=== PATIENT | male | born 1965 | race Two or more races ===

== ENCOUNTER 2023-07-30 05:51 | Inpatient (IN) | payer MEDICAID ==
[~2023-07-30] VITALS: Ht 157.5 cm; Wt 63.5 kg
[2023-07-30] MEDS: VANCOMYCIN 1 GM in IV D5W 250 ML IV ONE (06:30)
[2023-07-30] MEDS ORDERED: PIPERACI/TAZO 3.375GM/D5W 50ML PB IV ONE (06:51)
[2023-07-30] MEDS ORDERED: AZITHROMYCIN 500 MG VIAL ONE (06:51)
[2023-07-30] MEDS ORDERED: ACETAMINOPHEN ES 500 MG TABLET ONE (06:52)
[2023-07-30] MEDS: ACETAMINOPHEN ES 500 MG TABLET PO ONE (06:53)
[2023-07-30] MEDS: PIPERACILLIN /TAZOBACTAM 3.375 G in IV D5W 50 ML IV ONE (06:53)
[2023-07-30] MEDS: AZITHROMYCIN 500 MG in IV D5W 250 ML IV ONE (06:54)
[2023-07-30 07:04] LABS: HEMOGLOBIN 11.1 g/dL (13.5-17.5)
[2023-07-30 07:11] LABS: BASOPHILS % (AUTO) 0.3 % (0.0-2.0); EOSINOPHILS # (AUTO) 0.2 K/uL (0.0-0.7); EOSINOPHILS % (AUTO) 1.2 % (0.0-6.0); HEMATOCRIT 34 % (39-51); LYMPHOCYTES # (AUTO) 0.2 K/uL (0.8-4.8); LYMPHOCYTES % (AUTO) 1.5 % (20.0-44.0); MEAN CORPUSCULAR HEMOGLOBIN 32 PG (26.0-33.0); MEAN CORPUSCULAR HGB CONC 32 g/dl (31.0-36.0); MEAN CORPUSCULAR VOLUME 98 fL (80-96); MONOCYTES # (AUTO) 0.1 K/uL (0.1-1.30); MONOCYTES % (AUTO) 0.3 % (2.0-12.0); NEUTROPHILS # (AUTO) 14.1 K/uL (1.8-8.9); NEUTROPHILS % (AUTO) 96.7 % (43.0-81.0); PLATELET COUNT (AUTO) 468 K/uL (150-450); WHITE BLOOD COUNT (AUTO) 14.6 K/uL (4.3-11.0)
[2023-07-30 07:14] LABS: INR 1.1 (0.91-1.10); PARTIAL THROMBOPLASTIN TIME 27.5 SEC (24.3-34.3); PROTHROMBIN TIME 11.6 SECS (9.2-11.1)
[2023-07-30] MEDS ORDERED: VANCOMYCIN 1 GM /D5W 250 ML PB IV ONE (07:16)
[2023-07-30 07:25] LABS: ALANINE AMINOTRANSFERASE 26 U/L (12-78); ALBUMIN 2.5 g/dL (3.4-5.0); ALKALINE PHOSPHATASE 403 U/L (46-116); ASPARTATE AMINOTRANSFERASE 31 U/L (15-37); BILIRUBIN,DIRECT 0.7 mg/dL (0.0-0.2); BILIRUBIN,TOTAL 2.3 mg/dL (0.2-1.0); CALCIUM, SERUM 8.9 mg/dL (8.5-10.1); CARBON DIOXIDE 24 mmol/L (21-32); CHLORIDE 99 mmol/L (98-107); CREATININE 5.4 mg/dL (0.6-1.3); GLUCOSE 122 mg/dL (74-106); SODIUM SERUM 136 mmol/L (136-145); TOTAL PROTEIN, SERUM 8.7 g/dL (6.4-8.2); UREA NITROGEN, BLOOD 46 mg/dL (7-18)
[2023-07-30] MEDS ORDERED: LACT20SO4 PO (08:48)
[2023-07-30] MEDS ORDERED: POLY17PO4 PO (08:48)
[2023-07-30] MEDS ORDERED: SODI45SP10 BNOSTRILS (08:48)
[2023-07-30] MEDS ORDERED: GLUC1KIT IM (08:48)
[2023-07-30] MEDS ORDERED: MIRT7.5T10 PO (08:48)
[2023-07-30] MEDS ORDERED: ACET-868 PO (08:48)
[2023-07-30] MEDS ORDERED: SEVE800T8 PO (08:48)
[2023-07-30] MEDS ORDERED: TAMS-12 PO (08:48)
[2023-07-30] MEDS ORDERED: MAGN400O6 PO (08:48)
[2023-07-30] MEDS ORDERED: METO25TA6 PO (08:48)
[2023-07-30] MEDS ORDERED: DOCU100T2 PO (08:48)
[2023-07-30] MEDS ORDERED: AMIN30LI2 PO (08:48)
[2023-07-30] MEDS ORDERED: FOLI0.8T43 PO (08:48)
[2023-07-30] MEDS ORDERED: NAPR375T5 PO (08:48)
[2023-07-30] MEDS ORDERED: AMLO5TAB4 PO (08:48)
[2023-07-30] MEDS ORDERED: INSU100I47 SQ (08:48)
[2023-07-30] MEDS ORDERED: OMEP40CA21 PO (08:48)
[2023-07-30] MEDS ORDERED: HYDR-4077 PO (08:48)
[2023-07-30] MEDS ORDERED: IPRA3AMP22 IH (08:48)
[2023-07-30] MEDS ORDERED: Z GUARD REMEDY 4 OZ OINT TP PRN (13:30)
[2023-07-30] MEDS ORDERED: ONDANSETRON HCL/PF 4 MG/2 ML VIAL IVP PRN (13:30)
[2023-07-30] MEDS ORDERED: ACETAMINOPHEN 325 MG TABLET ONE (13:35)
[2023-07-30] MEDS: ACETAMINOPHEN 325 MG TABLET PO PRN (13:37)
[2023-07-30] MEDS: CEFEPIME 1 GM in IV D5W 50 ML IV SCH (15:56)
[2023-07-30 23:35] VITALS: BP 102/57; TEMP 98.8; O2SAT 98
[2023-07-31] VITALS: BP 94/60; TEMP 98.5; O2SAT 98
[2023-07-31 04:00] VITALS: BP 90/58; TEMP 98.2; O2SAT 100
[2023-07-31 07:00] VITALS: BP 100/65; TEMP 97.7; O2SAT 100
[2023-07-31 07:16] LABS: BASOPHILS # (AUTO) 0.1 K/uL (0.0-0.2); BASOPHILS % (AUTO) 0.3 % (0.0-2.0); EOSINOPHILS # (AUTO) 0.5 K/uL (0.0-0.7); EOSINOPHILS % (AUTO) 2.3 % (0.0-6.0); HEMATOCRIT 30 % (39-51); HEMOGLOBIN 9.7 g/dL (13.5-17.5); LYMPHOCYTES # (AUTO) 1.1 K/uL (0.8-4.8); LYMPHOCYTES % (AUTO) 4.8 % (20.0-44.0); MEAN CORPUSCULAR HEMOGLOBIN 32 PG (26.0-33.0); MEAN CORPUSCULAR HGB CONC 33 g/dl (31.0-36.0); MEAN CORPUSCULAR VOLUME 98 fL (80-96); MONOCYTES # (AUTO) 2.1 K/uL (0.1-1.30); MONOCYTES % (AUTO) 8.9 % (2.0-12.0); NEUTROPHILS # (AUTO) 19.5 K/uL (1.8-8.9); NEUTROPHILS % (AUTO) 83.7 % (43.0-81.0); PLATELET COUNT (AUTO) 418 K/uL (150-450); RED BLOOD CELL COUNT(AUTO) 3.01 MIL/uL (4.5-6.0); RED CELL DISTRIBUTION WIDTH 17.8 % (11.5-15.0); WHITE BLOOD COUNT (AUTO) 23.3 K/uL (4.3-11.0)
[2023-07-31 07:27] LABS: CALCIUM, SERUM 8.5 mg/dL (8.5-10.1); CREATININE 6.8 mg/dL (0.6-1.3); MAGNESIUM 2.4 mg/dL (1.8-2.4); PHOSPHORUS 4.5 mg/dL (2.5-4.9); POTASSIUM 4.8 mmol/L (3.5-5.1)
[2023-07-31] MEDS: PANTOPRAZOLE 40 MG TABLET.DR PO SCH (07:54)
[2023-07-31 09:17] LABS: BAND % (MANUAL) 3 % (0.0-5.0); EOSINOPHILS % (MANUAL) 3 % (0-4); LYMPHOCYTES % (MANUAL) 3 % (16-48); MONOCYTES % (MANUAL) 9 % (0-11.0); NEUTROPHILS % (MANUAL) 82 (42-76); PLATELET ESTIMATE ADEQUATE
[2023-07-31 09:18] LABS: ANISOCYTOSIS 1+; OVALOCYTES 1+; TARGET CELLS 1+
[2023-07-31 16:00] VITALS: BP 151/74; TEMP 99.9; O2SAT 95
[2023-07-31] MEDS: VANCOMYCIN POST DIALYSIS 500MG IV PRN (16:45)
[2023-07-31 20:00] VITALS: BP 121/63; TEMP 99; O2SAT 96
[2023-08-01] VITALS: BP 119/60; TEMP 98; O2SAT 98
[2023-08-01 04:07] VITALS: BP 120/70; TEMP 98; O2SAT 100
[2023-08-01 07:56] LABS: BASOPHILS % (AUTO) 0.3 % (0.0-2.0); EOSINOPHILS # (AUTO) 0.6 K/uL (0.0-0.7); EOSINOPHILS % (AUTO) 3.3 % (0.0-6.0); HEMATOCRIT 31 % (39-51); HEMOGLOBIN 9.9 g/dL (13.5-17.5); MEAN CORPUSCULAR HEMOGLOBIN 31 PG (26.0-33.0); MEAN CORPUSCULAR HGB CONC 32 g/dl (31.0-36.0); MEAN CORPUSCULAR VOLUME 97 fL (80-96); MONOCYTES # (AUTO) 2.5 K/uL (0.1-1.30); MONOCYTES % (AUTO) 15.3 % (2.0-12.0); NEUTROPHILS # (AUTO) 12.4 K/uL (1.8-8.9); NEUTROPHILS % (AUTO) 75.1 % (43.0-81.0); PLATELET COUNT (AUTO) 429 K/uL (150-450); RED BLOOD CELL COUNT(AUTO) 3.17 MIL/uL (4.5-6.0); RED CELL DISTRIBUTION WIDTH 17.8 % (11.5-15.0); WHITE BLOOD COUNT (AUTO) 16.5 K/uL (4.3-11.0)
[2023-08-01 08:00] VITALS: BP 130/71; TEMP 98.4; O2SAT 97
[2023-08-01 08:28] LABS: ALBUMIN 1.9 g/dL (3.4-5.0); CALCIUM, SERUM 8.2 mg/dL (8.5-10.1); MAGNESIUM 2.3 mg/dL (1.8-2.4); PHOSPHORUS 3.7 mg/dL (2.5-4.9); TOTAL PROTEIN, SERUM 7.3 g/dL (6.4-8.2)
[2023-08-01 12:00] VITALS: BP 152/80; TEMP 98.4; O2SAT 94
[2023-08-01 13:28] LABS: ANISOCYTOSIS 1+; EOSINOPHILS % (MANUAL) 4 % (0-4); LYMPHOCYTES % (MANUAL) 7 % (16-48); MONOCYTES % (MANUAL) 15 % (0-11.0); NEUTROPHILS % (MANUAL) 74 (42-76); OVALOCYTES 1+; PLATELET ESTIMATE ADEQUATE; TARGET CELLS 1+
[2023-08-01] MEDS ORDERED: NEPRO VAN 237 ML CAN PO PRN (13:30)
[2023-08-01 16:00] VITALS: BP 160/82; TEMP 98.4; O2SAT 94
[2023-08-01] MEDS: LIDOCAINE 1% INJ 50 ML MDV IJ ONE (17:46)
[2023-08-01] MEDS: HYDROCODONE/APAP 5/325MG TABLET PO PRN (18:32)
[2023-08-01 20:00] VITALS: BP 152/85; TEMP 98.8; O2SAT 92
[2023-08-01] MEDS: MEROPENEM 500MG/NS 50 ML PB IV ONE (22:50)
[2023-08-01] MEDS: MEROPENEM 500 MG in IV NS 0.9% 50 ML IV SCH (22:54)
[2023-08-02] VITALS: BP 133/71; TEMP 99.5; O2SAT 93
[2023-08-02 02:39] VITALS: O2SAT 96
[2023-08-02 04:00] VITALS: BP 131/43; TEMP 98.2; O2SAT 95
[2023-08-02 07:28] LABS: BASOPHILS # (AUTO) 0.1 K/uL (0.0-0.2); BASOPHILS % (AUTO) 0.5 % (0.0-2.0); EOSINOPHILS # (AUTO) 0.7 K/uL (0.0-0.7); EOSINOPHILS % (AUTO) 5.7 % (0.0-6.0); HEMATOCRIT 34 % (39-51); HEMOGLOBIN 10.9 g/dL (13.5-17.5); LYMPHOCYTES # (AUTO) 1.2 K/uL (0.8-4.8); LYMPHOCYTES % (AUTO) 9.8 % (20.0-44.0); MEAN CORPUSCULAR HEMOGLOBIN 31 PG (26.0-33.0); MEAN CORPUSCULAR HGB CONC 32 g/dl (31.0-36.0); MEAN CORPUSCULAR VOLUME 98 fL (80-96); MONOCYTES # (AUTO) 2.7 K/uL (0.1-1.30); MONOCYTES % (AUTO) 21.5 % (2.0-12.0); NEUTROPHILS # (AUTO) 7.9 K/uL (1.8-8.9); NEUTROPHILS % (AUTO) 62.5 % (43.0-81.0); PLATELET COUNT (AUTO) 405 K/uL (150-450); RED CELL DISTRIBUTION WIDTH 17.7 % (11.5-15.0); WHITE BLOOD COUNT (AUTO) 12.7 K/uL (4.3-11.0)
[2023-08-02 08:07] LABS: HEPATITIS B SURFACE AB Non Reactive (.)
[2023-08-02 08:12] LABS: ALBUMIN 1.9 g/dL (3.4-5.0); BILIRUBIN,TOTAL 0.8 mg/dL (0.2-1.0); CALCIUM, SERUM 8.5 mg/dL (8.5-10.1); CREATININE 4.5 mg/dL (0.6-1.3); MAGNESIUM 2.4 mg/dL (1.8-2.4); PHOSPHORUS 2.6 mg/dL (2.5-4.9); POTASSIUM 3.8 mmol/L (3.5-5.1); TOTAL PROTEIN, SERUM 7.5 g/dL (6.4-8.2)
[2023-08-02 17:08] LABS: ANISOCYTOSIS 1+; EOSINOPHILS % (MANUAL) 5 % (0-4); LYMPHOCYTES % (MANUAL) 7 % (16-48); MONOCYTES % (MANUAL) 21 % (0-11.0); NEUTROPHILS % (MANUAL) 67 (42-76); PLATELET ESTIMATE ADEQUATE
[2023-08-02 17:09] LABS: HYPOCHROMASIA 1+
[2023-08-02] MEDS: IV 1/2NS 1000 ML 1,000 ML IV PRN (17:37)
[2023-08-02 20:00] VITALS: BP_SYST 152; BP_SYST 153; BP_DIAS 87; BP_DIAS 88; TEMP 98.4; TEMP 98.9; O2SAT 94
[2023-08-03] VITALS: BP_SYST 152; BP_SYST 153; BP_DIAS 88; TEMP 98.4; TEMP 98.9; O2SAT 94
[2023-08-03 02:11] VITALS: O2SAT 95
[2023-08-03 04:00] VITALS: BP 150/83; TEMP 98.3; O2SAT 95
[2023-08-03 07:00] VITALS: BP 162/90; TEMP 98.2; O2SAT 90
[2023-08-03 07:27] LABS: BASOPHILS # (AUTO) 0.1 K/uL (0.0-0.2); BASOPHILS % (AUTO) 0.4 % (0.0-2.0); EOSINOPHILS % (AUTO) 7.6 % (0.0-6.0); HEMATOCRIT 34 % (39-51); HEMOGLOBIN 11.1 g/dL (13.5-17.5); LYMPHOCYTES # (AUTO) 1.3 K/uL (0.8-4.8); LYMPHOCYTES % (AUTO) 9.8 % (20.0-44.0); MEAN CORPUSCULAR HEMOGLOBIN 32 PG (26.0-33.0); MEAN CORPUSCULAR HGB CONC 33 g/dl (31.0-36.0); MEAN CORPUSCULAR VOLUME 97 fL (80-96); MONOCYTES # (AUTO) 2.1 K/uL (0.1-1.30); NEUTROPHILS # (AUTO) 8.8 K/uL (1.8-8.9); NEUTROPHILS % (AUTO) 66.2 % (43.0-81.0); PLATELET COUNT (AUTO) 423 K/uL (150-450); RED BLOOD CELL COUNT(AUTO) 3.51 MIL/uL (4.5-6.0); RED CELL DISTRIBUTION WIDTH 17.3 % (11.5-15.0); WHITE BLOOD COUNT (AUTO) 13.3 K/uL (4.3-11.0)
[2023-08-03 08:40] LABS: CALCIUM, SERUM 7.9 mg/dL (8.5-10.1); MAGNESIUM 2.2 mg/dL (1.8-2.4); PHOSPHORUS 3.1 mg/dL (2.5-4.9)
[2023-08-03 11:35] LABS: ANISOCYTOSIS 1+; EOSINOPHILS % (MANUAL) 2 % (0-4); LYMPHOCYTES % (MANUAL) 9 % (16-48); MONOCYTES % (MANUAL) 12 % (0-11.0); NEUTROPHILS % (MANUAL) 77 (42-76); PLATELET ESTIMATE ADEQUATE
[2023-08-03 11:36] LABS: OVALOCYTES 1+; TARGET CELLS 1+
[2023-08-03 16:00] VITALS: BP 164/91; TEMP 98.2; O2SAT 92
[2023-08-03 20:00] VITALS: BP 157/85; TEMP 98.1; O2SAT 95
[2023-08-04 07:37] LABS: BASOPHILS # (AUTO) 0.1 K/uL (0.0-0.2); BASOPHILS % (AUTO) 0.7 % (0.0-2.0); EOSINOPHILS # (AUTO) 1.1 K/uL (0.0-0.7); EOSINOPHILS % (AUTO) 7.9 % (0.0-6.0); HEMATOCRIT 35 % (39-51); HEMOGLOBIN 11.1 g/dL (13.5-17.5); LYMPHOCYTES # (AUTO) 1.2 K/uL (0.8-4.8); LYMPHOCYTES % (AUTO) 8.7 % (20.0-44.0); MEAN CORPUSCULAR HEMOGLOBIN 31 PG (26.0-33.0); MEAN CORPUSCULAR HGB CONC 32 g/dl (31.0-36.0); MEAN CORPUSCULAR VOLUME 97 fL (80-96); MONOCYTES # (AUTO) 2.1 K/uL (0.1-1.30); MONOCYTES % (AUTO) 15.3 % (2.0-12.0); NEUTROPHILS # (AUTO) 9.4 K/uL (1.8-8.9); NEUTROPHILS % (AUTO) 67.4 % (43.0-81.0); PLATELET COUNT (AUTO) 499 K/uL (150-450); RED BLOOD CELL COUNT(AUTO) 3.55 MIL/uL (4.5-6.0); RED CELL DISTRIBUTION WIDTH 17.5 % (11.5-15.0); WHITE BLOOD COUNT (AUTO) 13.9 K/uL (4.3-11.0)
[2023-08-04 08:12] LABS: CALCIUM, SERUM 7.7 mg/dL (8.5-10.1); CREATININE 6.8 mg/dL (0.6-1.3); MAGNESIUM 2.5 mg/dL (1.8-2.4); PHOSPHORUS 3.5 mg/dL (2.5-4.9); POTASSIUM 4.2 mmol/L (3.5-5.1)
[2023-08-04 08:14] VITALS: BP 168/88; TEMP 98.4; O2SAT 94
[2023-08-04] MEDS ORDERED: FENTANYL PF 100MCG/2ML AMPUL ONE (08:26)
[2023-08-04] MEDS ORDERED: FAMOTIDINE/PF INJ 20 MG/2 ML VIAL IV ONE (08:26)
[2023-08-04] MEDS ORDERED: IOHEXOL 50 ML IV ONE (08:35)
[2023-08-04] MEDS ORDERED: LIDOCAINE HCL/MPF 1% 30 ML VIAL IJ ONE (08:35)
[2023-08-04] MEDS ORDERED: ANESTHESIA TRAY IN PYXIS 1 EA TRAY MC ONE (08:35)
[2023-08-04] MEDS ORDERED: HEPARIN SODIUM, PORCINE 1,000 UNIT/ML VIAL ONE (08:36)
[2023-08-04] MEDS ORDERED: PROPOFOL 100 ML ONE (09:06)
[2023-08-04] MEDS ORDERED: MIDAZOLAM HCL 2 MG/2ML VIAL ONE (09:07)
[2023-08-04 10:18] LABS: BAND % (MANUAL) 3 % (0.0-5.0); EOSINOPHILS % (MANUAL) 10 % (0-4); LYMPHOCYTES % (MANUAL) 6 % (16-48); MONOCYTES % (MANUAL) 11 % (0-11.0); MYELOCYTES % 1 % (0-0); NEUTROPHILS % (MANUAL) 69 (42-76); PLATELET ESTIMATE INCREASED
[2023-08-04 16:02] VITALS: BP 168/95; TEMP 97.7; O2SAT 96
[2023-08-04] MEDS ORDERED: ANCEF 1 GM/50 ML D5W IV SCH ×2 (17:00)
[2023-08-04 22:01] VITALS: BP 178/98; TEMP 98.2; O2SAT 96
[2023-08-04] MEDS ORDERED: POLYETHYLENE GLYCOL 3350 17 GM POWD.PACK PO PRN (22:30)
[2023-08-04] MEDS ORDERED: DOCUSATE SODIUM 100 MG CAPSULE PO PRN (22:30)
[2023-08-04] MEDS ORDERED: LACTULOSE 10 G/15 ML UDC (PYXIS) PO PRN (22:30)
[2023-08-04] MEDS: TAMSULOSIN 0.4 MG CAP.SR.24H PO SCH (22:41)
[2023-08-04] MEDS: AMLODIPINE BESYLATE 5 MG TABLET PO SCH (22:49)
[2023-08-04] MEDS: METOPROLOL TARTRATE 25 MG TABLET PO SCH (22:49)
[2023-08-04 23:30] VITALS: BP 159/88
[2023-08-05] MEDS: hydrALAZINE HCL 50 MG TABLET PO PRN (05:20)
[2023-08-05 06:10] VITALS: BP 160/86
[2023-08-05 07:36] LABS: BASOPHILS # (AUTO) 0.1 K/uL (0.0-0.2); BASOPHILS % (AUTO) 0.5 % (0.0-2.0); EOSINOPHILS % (AUTO) 7.6 % (0.0-6.0); HEMATOCRIT 33 % (39-51); HEMOGLOBIN 10.8 g/dL (13.5-17.5); LYMPHOCYTES # (AUTO) 1.1 K/uL (0.8-4.8); MEAN CORPUSCULAR HEMOGLOBIN 31 PG (26.0-33.0); MEAN CORPUSCULAR HGB CONC 33 g/dl (31.0-36.0); MEAN CORPUSCULAR VOLUME 96 fL (80-96); MONOCYTES # (AUTO) 1.9 K/uL (0.1-1.30); MONOCYTES % (AUTO) 13.9 % (2.0-12.0); NEUTROPHILS # (AUTO) 9.6 K/uL (1.8-8.9); PLATELET COUNT (AUTO) 462 K/uL (150-450); RED BLOOD CELL COUNT(AUTO) 3.44 MIL/uL (4.5-6.0); RED CELL DISTRIBUTION WIDTH 16.9 % (11.5-15.0); WHITE BLOOD COUNT (AUTO) 13.7 K/uL (4.3-11.0)
[2023-08-05] MEDS: SEVELAMER CARBONATE 800 MG POWD.PACK PO SCH (07:36)
[2023-08-05] MEDS: VIT B CMPLX 3/FA/VIT C/BIOTIN 1 TAB TABLET PO SCH (08:08)
[2023-08-05] MEDS: LEVOFLOXACIN (250MG) 250 MG TABLET PO SCH (08:08)
[2023-08-05] MEDS: PROSOURCE / PROSTAT (PYXIS) 30 ML UDC PO SCH (08:08)
[2023-08-05 08:18] VITALS: BP 151/84; TEMP 98.6; O2SAT 98
[2023-08-05 08:22] LABS: CALCIUM, SERUM 8.1 mg/dL (8.5-10.1); CREATININE 6.1 mg/dL (0.6-1.3); MAGNESIUM 2.3 mg/dL (1.8-2.4); PHOSPHORUS 4.1 mg/dL (2.5-4.9); POTASSIUM 4.2 mmol/L (3.5-5.1)
[2023-08-05] MEDS: NAPROXEN 375 MG TABLET.DR PO SCH (09:00)
[2023-08-05 11:53] LABS: EOSINOPHILS % (MANUAL) 4 % (0-4); LYMPHOCYTES % (MANUAL) 14 % (16-48); MONOCYTES % (MANUAL) 11 % (0-11.0); NEUTROPHILS % (MANUAL) 71 (42-76)
[2023-08-05 11:54] LABS: ANISOCYTOSIS 1+; OVALOCYTES 1+; PLATELET ESTIMATE ADEQUATE
[2023-08-05 11:55] LABS: TARGET CELLS 1+
[2023-08-05] MEDS ORDERED: DEXTROSE 50%-WATER 50 ML DISP.SYRIN IV PRN (14:00)
[2023-08-05 16:02] VITALS: BP 156/81; TEMP 99.3; O2SAT 94
[2023-08-05] MEDS: BLOOD SUGAR DIAGNOSTIC 1 EACH STRIP IN SCH (17:10)
[2023-08-05 20:00] VITALS: BP 154/87; TEMP 98.4; O2SAT 94
[2023-08-05] MEDS: MIRTAZAPINE 15 MG TABLET PO SCH (22:04)
[2023-08-06 07:49] LABS: BASOPHILS # (AUTO) 0.1 K/uL (0.0-0.2); BASOPHILS % (AUTO) 0.3 % (0.0-2.0); EOSINOPHILS # (AUTO) 1.7 K/uL (0.0-0.7); EOSINOPHILS % (AUTO) 10.5 % (0.0-6.0); HEMATOCRIT 32 % (39-51); HEMOGLOBIN 10.3 g/dL (13.5-17.5); LYMPHOCYTES # (AUTO) 1.7 K/uL (0.8-4.8); LYMPHOCYTES % (AUTO) 10.5 % (20.0-44.0); MEAN CORPUSCULAR HEMOGLOBIN 31 PG (26.0-33.0); MEAN CORPUSCULAR HGB CONC 32 g/dl (31.0-36.0); MEAN CORPUSCULAR VOLUME 97 fL (80-96); MONOCYTES # (AUTO) 1.9 K/uL (0.1-1.30); MONOCYTES % (AUTO) 11.8 % (2.0-12.0); NEUTROPHILS # (AUTO) 10.9 K/uL (1.8-8.9); NEUTROPHILS % (AUTO) 66.9 % (43.0-81.0); PLATELET COUNT (AUTO) 468 K/uL (150-450); RED BLOOD CELL COUNT(AUTO) 3.31 MIL/uL (4.5-6.0); RED CELL DISTRIBUTION WIDTH 16.6 % (11.5-15.0); WHITE BLOOD COUNT (AUTO) 16.3 K/uL (4.3-11.0)
[2023-08-06 08:00] VITALS: BP 157/86; TEMP 98.6; O2SAT 94
[2023-08-06] MEDS: SEVELAMER CARBONATE 800 MG TABLET PO SCH (08:25)
[2023-08-06 08:33] LABS: CALCIUM, SERUM 7.8 mg/dL (8.5-10.1); CREATININE 7.1 mg/dL (0.6-1.3); MAGNESIUM 2.5 mg/dL (1.8-2.4); POTASSIUM 4.3 mmol/L (3.5-5.1)
[2023-08-06 11:16] LABS: EOSINOPHILS % (MANUAL) 11 % (0-4); LYMPHOCYTES % (MANUAL) 8 % (16-48); METAMYELOCYTES % 1 % (0-0); MONOCYTES % (MANUAL) 10 % (0-11.0); NEUTROPHILS % (MANUAL) 68 (42-76); PLATELET ESTIMATE INCREASED; REACTIVE LYMPHOCYTES 2 % (0-0); SMUDGE CELLS 1+
[2023-08-06 11:17] LABS: ANISOCYTOSIS 1+; OVALOCYTES 1+; TARGET CELLS 1+
[2023-08-06] MEDS: EPOETIN ALFA (10,000 UNIT) 10,000 UNIT/ML VIAL IV ONE (15:06)
[2023-08-06 16:00] VITALS: BP 154/87; TEMP 98.6; O2SAT 94
[2023-08-06] MEDS: GENTAMICIN IV ONE (22:42)
[2023-08-06] MEDS: NS 0.9% IV ONE (22:42)
[2023-08-06] MEDS ORDERED: GENTAMICIN 80 MG/2 ML VIAL ONE (23:38)
[2023-08-07 07:38] LABS: BASOPHILS % (AUTO) 0.4 % (0.0-2.0); HEMATOCRIT 34 % (39-51); HEMOGLOBIN 10.7 g/dL (13.5-17.5); LYMPHOCYTES % (AUTO) 11.9 % (20.0-44.0); MEAN CORPUSCULAR HEMOGLOBIN 31 PG (26.0-33.0); MEAN CORPUSCULAR HGB CONC 32 g/dl (31.0-36.0); MEAN CORPUSCULAR VOLUME 98 fL (80-96); MONOCYTES % (AUTO) 11.9 % (2.0-12.0); NEUTROPHILS % (AUTO) 63.8 % (43.0-81.0); PLATELET COUNT (AUTO) 470 K/uL (150-450); RED BLOOD CELL COUNT(AUTO) 3.43 MIL/uL (4.5-6.0); RED CELL DISTRIBUTION WIDTH 16.5 % (11.5-15.0); WHITE BLOOD COUNT (AUTO) 14.1 K/uL (4.3-11.0)
[2023-08-07 07:39] LABS: BASOPHILS # (AUTO) 0.1 K/uL (0.0-0.2); EOSINOPHILS # (AUTO) 1.7 K/uL (0.0-0.7); LYMPHOCYTES # (AUTO) 1.7 K/uL (0.8-4.8); MONOCYTES # (AUTO) 1.7 K/uL (0.1-1.30)
[2023-08-07 07:58] LABS: CALCIUM, SERUM 8.7 mg/dL (8.5-10.1); CREATININE 6.1 mg/dL (0.6-1.3); MAGNESIUM 2.4 mg/dL (1.8-2.4); PHOSPHORUS 3.7 mg/dL (2.5-4.9); POTASSIUM 4.4 mmol/L (3.5-5.1)
[2023-08-07 08:50] VITALS: BP 161/88; TEMP 98.1; O2SAT 95
[2023-08-07 09:38] LABS: BAND % (MANUAL) 2 % (0.0-5.0); EOSINOPHILS % (MANUAL) 8 % (0-4); LYMPHOCYTES % (MANUAL) 10 % (16-48); METAMYELOCYTES % 1 % (0-0); MONOCYTES % (MANUAL) 13 % (0-11.0); MYELOCYTES % 2 % (0-0); NEUTROPHILS % (MANUAL) 64 (42-76); PLATELET ESTIMATE INCREASED
[2023-08-07 16:09] VITALS: BP 153/86; TEMP 98.1; O2SAT 94
[2023-08-07 20:00] VITALS: BP 147/88; TEMP 97.9; O2SAT 95
[2023-08-07 20:25] VITALS: BP 147/88; TEMP 97.9; O2SAT 95
[2023-08-07] MEDS: INSULIN REGULAR, HUMAN 100 UNIT/ML 3 ML VIAL SQ PRN (22:34)
[2023-08-08 03:01] VITALS: O2SAT 98
[2023-08-08 07:59] LABS: CALCIUM, SERUM 7.4 mg/dL (8.5-10.1); CREATININE 6.8 mg/dL (0.6-1.3); MAGNESIUM 2.4 mg/dL (1.8-2.4); PHOSPHORUS 4.1 mg/dL (2.5-4.9); POTASSIUM 4.9 mmol/L (3.5-5.1)
[2023-08-08 08:09] LABS: BASOPHILS # (AUTO) 0.1 K/uL (0.0-0.2); BASOPHILS % (AUTO) 0.9 % (0.0-2.0); EOSINOPHILS # (AUTO) 1.5 K/uL (0.0-0.7); EOSINOPHILS % (AUTO) 11.3 % (0.0-6.0); HEMATOCRIT 34 % (39-51); HEMOGLOBIN 10.9 g/dL (13.5-17.5); LYMPHOCYTES # (AUTO) 1.6 K/uL (0.8-4.8); LYMPHOCYTES % (AUTO) 11.8 % (20.0-44.0); MEAN CORPUSCULAR HEMOGLOBIN 31 PG (26.0-33.0); MEAN CORPUSCULAR HGB CONC 32 g/dl (31.0-36.0); MEAN CORPUSCULAR VOLUME 97 fL (80-96); MONOCYTES # (AUTO) 1.6 K/uL (0.1-1.30); MONOCYTES % (AUTO) 12.2 % (2.0-12.0); NEUTROPHILS # (AUTO) 8.6 K/uL (1.8-8.9); NEUTROPHILS % (AUTO) 63.8 % (43.0-81.0); PLATELET COUNT (AUTO) 528 K/uL (150-450); RED BLOOD CELL COUNT(AUTO) 3.53 MIL/uL (4.5-6.0); RED CELL DISTRIBUTION WIDTH 16.4 % (11.5-15.0); WHITE BLOOD COUNT (AUTO) 13.5 K/uL (4.3-11.0)
[2023-08-08 08:28] LABS: GENTAMICIN,TROUGH 2.2 ug/ml (0.2-2.0)
[2023-08-08 08:34] VITALS: BP 151/86; TEMP 98.2; O2SAT 95
[2023-08-08] MEDS: GENTAMICIN 80 MG in IV D5W 50 ML IV PRN (15:13)
[2023-08-08] MEDS ORDERED: RXGEN XX (15:21)
[2023-08-08 16:00] VITALS: BP 176/89; TEMP 97.5; O2SAT 95
[2023-08-08 17:16] VITALS: BP 169/94
== END 2023-08-08 17:25 | DRG 721 ==
LOC: ER 06:03 → TELE 13:45 → MED 08-03 10:39
PROVIDERS: ATTEND Student in an Organized Health Care Education/Training Program
PROC: 5A1D70Z Performance of Urinary Filtration, Intermittent, Less than 6 Hours Per Day (ICD-10-PCS; 2023-07-31)
PROC: 05PYX3Z Removal of Infusion Device from Upper Vein, External Approach (ICD-10-PCS; principal; 2023-08-01)
PROC: 0JH63XZ Insertion of Tunneled Vascular Access Device into Chest Subcutaneous Tissue and Fascia, Percutaneous Approach (ICD-10-PCS; 2023-08-04)
PROC: 02HV33Z Insertion of Infusion Device into Superior Vena Cava, Percutaneous Approach (ICD-10-PCS; 2023-08-04)
PROC: B518YZA Fluoroscopy of Superior Vena Cava using Other Contrast, Guidance (ICD-10-PCS; 2023-08-04)
DX: T80.211A Bloodstream infection due to central venous catheter, initial encounter (principal); A41.59 Other Gram-negative sepsis; I12.0 Hypertensive chronic kidney disease with stage 5 chronic kidney disease or end stage renal disease; E87.1 Hypo-osmolality and hyponatremia; D64.9 Anemia, unspecified; E11.22 Type 2 diabetes mellitus with diabetic chronic kidney disease; N18.6 End stage renal disease; F32.9 Major depressive disorder, single episode, unspecified; R09.02 Hypoxemia; Z99.2 Dependence on renal dialysis; M89.8X9 Other specified disorders of bone, unspecified site; Z20.822 Contact with and (suspected) exposure to COVID-19; E66.01 Morbid (severe) obesity due to excess calories; M48.00 Spinal stenosis, site unspecified; N40.0 Benign prostatic hyperplasia without lower urinary tract symptoms; Z90.5 Acquired absence of kidney; Z79.4 Long term (current) use of insulin; R26.9 Unspecified abnormalities of gait and mobility; Y84.8 Other medical procedures as the cause of abnormal reaction of the patient, or of later complication, without mention of misadventure at the time of the procedure; Y92.129 Unspecified place in nursing home as the place of occurrence of the external cause; Z82.49 Family history of ischemic heart disease and other diseases of the circulatory system
CPT/HCPCS: 36415; 71045-TC; 80048-TC; 80053-TC; 80076-TC; 80170-TC; 80202-TC; 82962-TC; 83605-TC; 83735-TC; 84100-TC; 84295-TC; 84484-TC; 85025-TC; 85730-TC; 86706; 87040-TC; 87081-TC; 87186-TC; 87340; 90935-TC; 94799-TC; 97110-TC; 97112-TC; 97530-TC; A4223; A6403; C1750; C1769; G0378; J0456; J0690; J0692; J0885; J1580; J1644; J1815; J2185; J2250; J2543; J3010; J3370; J3490; J7030; J7050; J7060; Q9967